=== PATIENT | female | born 1980 | race Caucasian/White ===

== ENCOUNTER 2023-01-26 10:41 | Emergency (ER) | payer OTHER, SELFPAY ==
[2023-01-26] VITALS (16 sets, daily range): BP systolic 133–150; BP diastolic 80–96; PULSE 68–86; RESP 18; TEMP 36.3; O2SAT 93–98
--- NOTE | 2023-01-26 10:59 | ED_ITS ---
HPI - Chest Pain General Time Seen by Provider: 11:08 Date Seen: 01/26/23 Chief Complaint: Chest Pain Stated Complaint: chest pain Time Seen by Provider: 01/26/23 10:59 Source: patient, family and RN notes reviewed Mode of arrival: ambulatory Limitations: no limitations History of Present Illness HPI narrative: Patient is a 42-year-old female coming into the ER of her own accord with complaint of chest discomfort/tightness. For about a week or so she has been having episodic tightness, occasional sense of racing heartbeat. These are not necessarily coming together. She does admit work has been stressful, tried to relax as weekend. At times the taking a deep breath she would feel the increased chest tightness. Had cough and a cold at the beginning of December and has had a little residual coughing at times. No fevers. No prior history for herself of heart or lung issues, no underlying asthma. She is a nonsmoker. She is not on any oral contraceptives and there is no chance for . She notes she did not feel increased sense of chest tightness with going up and down stairs or moving around. She has a history of burning type chest sensation a few years ago that was thought to be heartburn and [id number] Pepcid did relieve this. She does not take it all the time but does not feel it is helping now. Family history: Per patient her dad this past year of an MA at age 65. Her mom has hypertension. There is a grandfather on the maternal side that had heart disease issues. MD complaint: chest heaviness Risk Factors Coronary artery disease risk factors: none Related Data On Oral Contraceptives: No Home Medications Medication Instructions Recorded Confirmed ascorbate calcium (vitamin C) PO 04/02/22 04/22/22 cholecalciferol (vitamin D3) PO 04/02/22 04/22/22 Previous Rx's Medication Instructions Recorded benzonatate 100 mg capsule 100 mg PO BID-TID PRN cough #14 04/08/22 caps albuterol sulfate 90 mcg/actuation 2 puff inhalation Q6H PRN 04/22/22 aerosol inhaler shortness of breath or wheezing #6.7 grams azithromycin 250 mg tablet See Rx Instructions PO .COMPLEX #6 04/22/22 tabs codeine 10 mg-guaifenesin 100 mg/5 5 ml PO Q4-6H PRN cough #120 mL 04/22/22 mL oral liquid prednisone 20 mg tablet 20 mg PO BID #10 tabs 04/22/22 Allergies Allergy/AdvReac Type Severity Reaction Status Date / Time No Known Drug Allergies Allergy Verified 04/22/22 15:51 Review of Systems Status of ROS Reports: 6 or more systems reviewed and unremarkable except as noted in History and below PFSH PFS Social History Smoking Status: Never smoker How often do you have a drink containing alcohol: monthly or less How often do you have six or more drinks on one occasion: Never AUDIT-C Alcohol total score: 1 Non-prescribed substance use: denies use Exam Const Vital Signs, click to edit/add: Vital Signs - 24 hr 01/26/23 10:43 01/26/23 11:11 01/26/23 11:19 Temperature 97.3 F L Pulse Rate 73 Pulse Rate [Pulse Oximeter] 86 Respiratory Rate 18 Blood Pressure Blood Pressure [Right Upper Arm] 147/96 H Pulse Oximetry 98 95 93 Oxygen Delivery Method Room Air 01/26/23 11:20 01/26/23 11:24 01/26/23 11:30 Temperature Pulse Rate 68 77 Pulse Rate [Pulse Oximeter] Respiratory Rate Blood Pressure 150/92 H Blood Pressure [Right Upper Arm] Pulse Oximetry 95 94 Oxygen Delivery Method 01/26/23 12:00 01/26/23 12:02 01/26/23 12:03 Temperature Pulse Rate 79 75 75 Pulse Rate [Pulse Oximeter] Respiratory Rate Blood Pressure 135/81 Blood Pressure [Right Upper Arm] Pulse Oximetry 95 98 95 Oxygen Delivery Method 01/26/23 12:30 01/26/23 13:00 01/26/23 13:02 Temperature Pulse Rate 75 74 70 Pulse Rate [Pulse Oximeter] Respiratory Rate Blood Pressure 138/80 Blood Pressure [Right Upper Arm] Pulse Oximetry 97 97 97 Oxygen Delivery Method 01/26/23 13:03 01/26/23 13:30 01/26/23 14:00 Temperature Pulse Rate 69 71 76 Pulse Rate [Pulse Oximeter] Respiratory Rate Blood Pressure Blood Pressure [Right Upper Arm] Pulse Oximetry 97 96 96 Oxygen Delivery Method Documenting provider has reviewed patient's vital signs: yes Common normals: no apparent distress, average body habitus, oriented x3, no limitations, healthy appearing, alert and well nourished General appearance: cooperative, comfortable, well kempt and well developed Other: Mildly tearful initially, overall alert interactive very pleasant patient. HENRI Common normals: normocephalic, head/scalp atraumatic, hearing grossly normal bilaterally and external ears normal Head and scalp: normocephalic and atraumatic Face and sinus: normal facial exam External ear: external ears normal Eye Common normals: PERRL, EOMs intact bilaterally, conjunctivae normal and no scleral icterus Conjunctiva: conjunctiva(e) normal Pupil: PERRL Neck & C-Spine Common normals: full ROM, no lymphadenopathy, supple, no meningeal signs, no JVD and thyroid normal Thyroid: thyroid normal Chest Common normals: inspection of chest normal and palpation of chest normal Resp Common normals: normal respiratory effort, no retractions, no use of accessory muscles and clear to auscultation bilaterally Effort & inspection: able to speak in complete sentences Auscultation: clear to auscultation bilaterally Cardio Common normals: no JVD, regular rate, regular rhythm, S1 normal heart sound, S2 normal heart sound, no gallops, no clicks, no murmurs and no rub Rate: regular rate Rhythm: regular rhythm Heart sounds: S1 normal and S2 normal GI Common normals: Normal to inspection, nondistended, normoactive bowel sounds present, soft to palpation, non-tender, no hepatosplenomegaly and no masses Palpation: soft and no hepatosplenomegaly Extremity Common normals: no calf tenderness and no pedal edema Neuro Common normals: oriented x3 Sensorium/orientation: alert Meningeal signs: no meningeal signs Psych Appearance: well kempt Course Course Hospital Course: This is a 42-year-old female with episodic sense of heart racing and chest heaviness. The certainly is underlying anxiety with this patient but will have her on cardiac monitoring, pulse oximetry to rule evaluate for any possible arrhythmia in hypoxia while here. Will place an IV. She will get a portable chest x-ray and appropriate labs. She understands that we will be doing a D- dimer and if this is positive would recommend chest CT to rule out pulmonary emboli as the causative etiology. Will do a full complement of labs including thyroid. Will consider cardiothoracic diagnoses including but not limited to pulmonary infections, cardiovascular disease including ischemia, infarction, pulmonary emboli. Reevaluation(s) Time of Reevaluation #1: 12:28 Reevaluation #1: Reviewed with patient that Radiology still needs to over read her chest x-ray but I see no acute pathology on my preliminary review. We reviewed normal CBC, normal D-dimer, normal comprehensive metabolic panel. Still awaiting TSH in troponin I. She understands that she will need a follow-up troponin and EKG, likely in about 1-1/2 hours. If all of this does come back normal, likely discharge to home with further outpatient follow-up. Did discuss testing such as ZIO patch, echo, cardiac stress testing at all need to be considered but could be done outpatient if negative evaluation here today. Time of Reevaluation #2: 14:13 Reevaluation #2: Patient's troponins have come back normal. Her 2nd one is done about 2 hours after the 1st but her symptoms were earlier this morning. She has remained stable here, no evidence of any arrhythmia or hypoxia. Plan will be to discharge to home for further outpatient evaluation. Vital Signs Vital signs: Initial Vital Signs Temperature 97.3 F L 01/26/23 10:43 Temperature Source Temporal Artery Scan 01/26/23 10:43 Pulse Rate 86 01/26/23 10:43 Pulse Rhythm Regular 01/26/23 10:43 Respiratory Rate 18 01/26/23 10:43 Blood Pressure 147/96 H 01/26/23 10:43 Blood Pressure Mean 113 H 01/26/23 10:43 Blood Pressure Position Sitting 01/26/23 10:43 Pulse Oximetry 98 01/26/23 10:43 Oxygen Delivery Method Room Air 01/26/23 10:43 Vital Signs Temperature 97.3 F L 01/26/23 10:43 Pulse Rate 86 01/26/23 10:43 Respiratory Rate 18 01/26/23 10:43 Blood Pressure 147/96 H 01/26/23 10:43 Pulse Oximetry 98 01/26/23 10:43 Oxygen Delivery Method Room Air 01/26/23 10:43 Temperature 97.3 F L 01/26/23 10:43 Pulse Rate 76 01/26/23 14:00 Respiratory Rate 18 01/26/23 10:43 Blood Pressure 138/80 01/26/23 13:02 Pulse Oximetry 96 01/26/23 14:00 Oxygen Delivery Method Room Air 01/26/23 10:43 MDM - Chest Pain Differential Diagnosis Differential diagnosis: Likely pneumothorax, stable angina, unstable angina pectoris, atypical chest pain, st elevation myocardial infarction, costochondritis and chest pain Lab Data Attestation: I reviewed the patient's lab results. Labs: Lab Results 01/26/23 01/26/23 Range/Units 11:23 13:55 WBC 8.11 (4.50-11.00) K/uL RBC 5.15 (4.00-5.20) m/uL Hgb 15.1 (12.0-16.0) gm/dL Hct 44.8 (33.0-51.0) % MCV 87 (80-100) fL MCH 29 (26-34) pg MCHC 34 (32-36) gm/dL RDW Coeff of Alli 12.9 (11.5-15.5) % Plt Count 233 (140-440) K/uL Neut % (Auto) 67.8 (42.0-72.0) % Lymph % (Auto) 23.7 (20-44) % Wilkinson % (Auto) 7.3 (0.0-11.0) % Eos % (Auto) 0.6 (0.0-7.0) % Baso % (Auto) 0.4 (0.0-3.0) % Neut # (Auto) 5.50 (1.7-7.0) K/uL Lymph # (Auto) 1.92 (0.90-2.90) K/uL Wilkinson # (Auto) 0.60 (0.00-0.90) K/UL Eos # (Auto) 0.05 (0.00-0.50) K/uL Baso # (Auto) 0.03 (0.00-0.30) K/uL Abs Immat Gran (auto) 0.02 (0.00-0.30) K/uL Imm/Tot Granulo (auto) 0.2 % D-Dimer Quant (PE/DVT) < 0.27 (0.00-0.50) ug/ml Sodium 139 (135-149) mmol/L Potassium 3.8 (3.6-5.1) mmol/L Chloride 107 (96-114) mmol/L Carbon Dioxide 24 (20-32) mmol/L BUN 14 (5-24) mg/dL Creatinine 0.8 (0.5-1.5) mg/dL Estimated GFR 94 ml/min Glucose 105 (60-115) mg/dL Calcium 9.0 (8.4-10.6) mg/dL Total Bilirubin 0.3 (0.1-1.5) mg/dL AST 24 (12-35) U/L ALT 25 (4-35) U/L Alkaline Phosphatase 67 (40-150) U/L Troponin I < 0.01 L (0.01-0.04) ng/mL C-Reactive Protein 0.7 (0.5-1.0) mg/dL NT-Pro-B Natriuret Pep 65 pg/mL Total Protein 7.5 (6.0-8.3) g/dL Albumin 4.2 (3.3-5.0) g/dL TSH 2.600 (0.270-4.200) uIU/mL POC Troponin I 0.00 L (0.01-0.04) ng/ml Imaging Data Chest x-ray: Attestation: I have reviewed the pertinent imaging results. My impression: I see no acute pathology on my preliminary review. Radiologist's impression: Patient: FRANKO DAMON Facility:?[facility] Patient ID:?[id number] Site Patient ID:?[id number]. Site :?[id number] Study:?XRay Chest 1 VIEW PORTABLE-01/26/2023 11:31:59 AM Ordering Physician:?Chas Perdomo Final Report: Indication: Chest tightness, racing heart Comparison: None available. Technique: Single AP view chest Findings: There is no focal consolidation, effusion, or pneumothorax. The cardiomediastinal silhouette is within normal limits. The bony thorax is grossly intact. Impression: No acute cardiopulmonary abnormality. Dictated by Lan Friedman MD @ 01/26/2023 12:51:54 PM (Electronic Signature) ECG Data Attestation: I personally reviewed and interpreted this ECG as follows: (Normal sinus rhythm with sinus arrhythmia, 90 beats per minute. No ischemia. QT corrected 447 milliseconds.) ECG interpretation date: 01/26/23 ECG interpretation time: 11:00 Prior ECG tracings: not available for review Interpretation: Normal sinus rhythm, 76 beats per minute. No ischemic change noted. QT corrected 454 milliseconds. This is a followup EKG timed 1:36 p.m. Critical Care Time Critical Care Time Critical Care Time: No Discharge Plan Discharge Clinical Impression: Palpitations, Chest discomfort Patient Disposition: Home, Self-Care Condition: Stable Instructions: Chest Pain (ED), Heart Palpitations (ED), Noncardiac Chest Pain (ED) Additional Instructions: Need to schedule a follow-up with your primary care provider with in the next week if at all possible. Recommend consideration of outpatient monitoring with ZIO patch if possible, Holter monitor if that is what is available. Talked primary care provider about consideration of echo and cardiac stress testing. Can also review anxiety at follow-up. In the meantime activity as tolerated, do recommend going for walks as this may help reduce stress. If you notice walking or exercises increasing your physical symptoms, need to stop and seek re- evaluation. If for any reason you are having increasing symptoms, have new concerns, please seek re-evaluation in the ER if need be. Prescriptions: No Action ascorbate calcium (vitamin C) PO cholecalciferol (vitamin D3) PO benzonatate 100 mg capsule 100 mg PO BID-TID PRN (Reason: cough) Qty: 14 0RF codeine-guaifenesin 10-100 mg/5 mL liquid 5 ml PO Q4-6H PRN (Reason: cough) Qty: 120 0RF azithromycin 250 mg tablet See Rx Instructions PO .COMPLEX Qty: 6 0RF Rx Instructions: For 250 mg dose pack: take 500 mg today (day 1), then 250 mg for 4 days (days 2-5) PO prednisone 20 mg tablet 20 mg PO BID Qty: 10 0RF albuterol sulfate 90 mcg/actuation HFA aerosol inhaler 2 puff inhalation Q6H PRN (Reason: shortness of breath or wheezing) Qty: 6.7 1RF Follow Up/Referrals: Leonela Ospina PA-C [Primary Care Provider] - Stand Alone Forms: [employer] Info Instructions
--- NOTE | 2023-01-26 11:11 | CRLHL7_ITS ---
For Patients: As a result of the Century Cures Act, medical imaging exams and procedure reports are released immediately into your electronic medical record. You may view this report before your referring provider. If you have questions, please contact your health care provider. Indication: Chest tightness, racing heart Comparison: None available. Technique: Single AP view chest Findings: There is no focal consolidation, effusion, or pneumothorax. The cardiomediastinal silhouette is within normal limits. The bony thorax is grossly intact. Impression: No acute cardiopulmonary abnormality. Dictated by Lan Friedman MD @ 01/26/2023 12:51:54 PM (Electronically Signed)
[2023-01-26 11:31] LABS: Basophils Absolute Auto 0.03 K/uL (0.00-0.30); Basophils Percent Auto 0.4 % (0.0-3.0); Eosinophils Absolute Auto 0.05 K/uL (0.00-0.50); Eosinophils Percent Auto 0.6 % (0.0-7.0); Hematocrit 44.8 % (33.0-51.0); Hemoglobin* 15.1 gm/dL (12.0-16.0); Immature Granulocytes Abs Auto 0.02 K/uL (0.00-0.30); Immature Granulocytes Pct Auto 0.2 %; Lymphocytes Absolute Auto 1.92 K/uL (0.90-2.90); Lymphocytes Percent Auto 23.7 % (20-44); Mean Corpuscular HGB Conc 34 gm/dL (32-36); Mean Corpuscular Hemoglobin 29 pg (26-34); Mean Corpuscular Volume 87 fL (80-100); Monocytes Percent Auto 7.3 % (0.0-11.0); Neutrophils Percent Auto 67.8 % (42.0-72.0); Platelet Count* 233 K/uL (140-440); RDW Coefficient of Variation % 12.9 % (11.5-15.5); Red Blood Count 5.15 m/uL (4.00-5.20); White Blood Count* 8.11 K/uL (4.50-11.00)
[2023-01-26 11:39] LABS: Slide Review Reflex No
[2023-01-26 11:48] LABS: Albumin* 4.2 g/dL (3.3-5.0); Chloride* 107 mmol/L (96-114)
[2023-01-26 11:49] LABS: Potassium* 3.8 mmol/L (3.6-5.1); Sodium* 139 mmol/L (135-149)
[2023-01-26 11:51] LABS: Bilirubin Total* 0.3 mg/dL (0.1-1.5); Creatinine* 0.8 mg/dL (0.5-1.5); Estimated Glomerular Filt Rate 94 ml/min
[2023-01-26 11:52] LABS: Alanine Aminotransferase* 25 U/L (4-35); Alkaline Phosphatase* 67 U/L (40-150); Aspartate Amino Transferase* 24 U/L (12-35); Blood Urea Nitrogen* 14 mg/dL (5-24); Carbon Dioxide* 24 mmol/L (20-32); Glucose* 105 mg/dL (60-115); Total Protein* 7.5 g/dL (6.0-8.3)
[2023-01-26 11:55] LABS: C Reactive Protein* 0.7 mg/dL (0.5-1.0)
[2023-01-26 12:09] LABS: D Dimer Quantitative* < 0.27 ug/ml (0.00-0.50)
[2023-01-26 12:11] LABS: NT Pro B Type NatriureticPept* 65 pg/mL
[2023-01-26 12:42] LABS: Troponin I* < 0.01 ng/mL (0.01-0.04)
== END 2023-01-26 14:27 | disposition home or self-care (01) ==
PROVIDERS: Emergency Provider Family Medicine; PCP Physician Assistant Medical
DX: R07.89 Other chest pain (principal); R00.2 Palpitations
CPT/HCPCS: 36415; 71045; 80053; 83880; 84443; 84484; 85025; 85379; 86140; 93005; 94761; 99284

== ENCOUNTER 2023-02-10 13:44 | Outpatient (CLI) | payer OTHER, SELFPAY ==
--- NOTE | 2023-02-10 14:48 | W.PM.STED ---
Stress Test Note Date Date of test: 02/10/23 Providers Primary care provider: Leonela Ospina Stress test physician: Rafael Mcconnell Stress Test Note Stress test ordered: Stress Echo Indication for test: Chest pain Results discussion: Patient is a very nice lady who presents for the above test, after discussion the risks benefits side effects she would like to proceed pretest EKG shows normal sinus rhythm rate was 86, blood pressure 132/85, with no acute ST wave changes, cardiac stress test medical history form is reviewed. Following standard Vincent protocol she is exercised for a total time of 9 minutes, test is terminated because of fatigue, and completion of protocol. She did hit her target heart rate, and was able to be imaged without the use of definity. Subjectively she had some very mild shortness of breath, and some fatigue, at peak. Her maximum heart rate was 172, which is 114% of target heart rate. Review of the tracing shows occasional PVCs there is no other dysrhythmia noted, no acute ST wave changes suggestive of ischemia. Impression: Negative electrographic portion of stress echo, conditioning was felt to be good Follow up suggested: Cardiology will review the echo portions, preliminary read by the performing arts technicians was negative wall motion abnormality. Clinical correlation will be needed with this. She recovered normally in the recovery period, will be discharged when she reaches normal criteria. There were no complications
[2023-02-10 14:53] VITALS: BP 120/70; PULSE 106
== END 2023-02-10 13:45 | disposition home or self-care (01) ==
LOC: STRESS 13:45
PROVIDERS: PCP Physician Assistant Medical; Visit Provider Physician Assistant Medical
DX: R07.9 Chest pain, unspecified (principal)
CPT/HCPCS: 93016; 93325; 93351

== ENCOUNTER 2023-06-24 13:47 | Outpatient (CLI) | payer OTHER, SELFPAY | END 2023-06-24 13:48 | disposition home or self-care (01) | PROVIDERS: PCP Physician Assistant Medical; Visit Provider Physician Assistant Medical | DX: Z00.00 Encounter for general adult medical examination without abnormal findings (principal); E66.9 Obesity, unspecified; Z13.6 Encounter for screening for cardiovascular disorders; Z13.1 Encounter for screening for diabetes mellitus | CPT/HCPCS: 80061; 82947 ==

== ENCOUNTER 2023-07-28 10:10 | Outpatient (CLI) | payer OTHER, SELFPAY ==
--- OUTSIDE RECORDS SUMMARY | 2023-07-28 10:13 | XMS_ITS | Clinical Summary ---
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 Pap 12/20/09 with LSIL, cannot r/o higher grade lesion; colpo done 01/31/10= 6:00 biopsy showed CIN1 and ECC negative Pap 07/30/10- ASCUS, +HPV; no colpo done Cervical shortening 12/20/2009 Overview: Due to LEEP 03/30 and 08/29: will need sonos in to check cervical length. Health Maintenance 03/26/2009 Overview: Last PE, 01/19/09 Pap, 01/26/09, HSIL; LEEP done 03/30 with path showing focal area CIN2 and margins negative; ECC negative. Pap 07/01-HSIL; 2nd LEEP done 09/11/09 and path all negative. Paps normal since then. Pap 06/02 normal. Cholesterol 12/29: total-161/HDL-58/LDL-86/TG-83 Tdap given 03/02. Encounters Date Type Department Care Team Description 06/25/2023 Lab Requisition [facility] [phone] Leonela Ospina PA-C from Last 3 Months Immunizations Name Administration Dates Next Due Hepatitis B (Adult) 09/11/1995,03/03/1995,1994 Td (Age >=7 Years) 06/22/2001 Tdap 02/25/2011 Family History Medical History Relation Name Comments Cancer Maternal Aunt cervical Heart Disease Maternal Grandfather ID in his 60's Diabetes Maternal Grandmother type II Stroke Maternal Grandmother CVA in her 70's Diabetes Maternal Uncle Thyroid Disease Paternal Aunt Thyroid Disease Paternal Grandmother Relation Name Status Comments Maternal Aunt Maternal Grandfather Maternal Grandmother Maternal Uncle Paternal Aunt Paternal Grandmother Social History Tobacco Use Types Packs/Day Years Used Date Smoking Tobacco: Never Smokeless Tobacco: Never Alcohol Use Standard Drinks/Week Comments Yes 0 (1 standard drink = 0.6 oz pure alcohol) two-four times/month on weekend Sex and Gender Information Value Date Recorded Sex Assigned at Not on file Gender Identity Not on file Sexual Orientation Not on file Obstetrics History Para Term AB IAB SAB Ectopic Multiple Livin g Live Births 0 0 0 0 0 0 0 0 0 0 Last Filed Vital Signs Vital Sign Reading Time Taken Comments Blood Pressure 120/78 05/07/2015 1:55 PM TOBACCO CHECKOUT CLERK Pulse 80 01/19/2015 12:20 PM CDT Temperature 37.1 ??C (98.7 ??F) 01/19/2015 12:20 PM C DT Respiratory Rate 18 01/12/2012 3:56 PM CDT Oxygen Saturation 98% 03/25/2011 3:57 PM CDT Inhaled Oxygen Concentration - - Weight 106.1 kg (234 lb) 05/07/2015 1:55 PM TOBACCO CHECKOUT CLERK Height 177.8 cm (5' 10) 01/09/2015 1:50 PM CDT Body Mass Index 33.58 01/09/2015 1:50 PM CDT Plan of Treatment Health Maintenance Due Date Last Done Comments Depression screening for age 12+ 1991 HIV for age 15-65 09/05/1994 BMI (ht and wt on same day) for age 18+ 09/05/1997 Hepatitis C screening for age 18-79 09/05/1997 Tetanus booster 02/25/2021 02/25/2011, 06/22/2001 COVID-19 vaccine series (2022-24 season) 2023 06/28/2021, 11/30/2020, 11/09/2020 Influenza for age 9-49 02/20/2023 Pap test for age 21-65 06/24/2024 , 06/24/2023, 11/21/2020, Additional history exists Tdap Completed 02/25/2011 Pneumococcal series for age 6-64 Aged Out No longer eligible based on patient's age to complete this topic Procedures Procedure Name Priority Date/Time Associated Diagnosis Comments LAB TRACKING EVENT Routine 06/24/2023 1: 45 PM TOBACCO CHECKOUT CLERK [employer]ER THIN PREP PAP SCREEN IMAGED Routine 06/24/2023 1:45 PM TOBACCO CHECKOUT CLERK HPV THIN PREP Routine 06/24/2023 1:45 PM TOBACCO CHECKOUT CLERK from Last 3 Months Results * LAB TRACKING EVENT (06/24/2023 1:45 PM TOBACCO CHECKOUT CLERK) Other (Other) Client Collect / Unknown 06/24/2023 1:45 PM TOBACCO CHECKOUT CLERK 06/25/2023 3:25 PM TOBACCO CHECKOUT CLERK Leonela Ospina PA-C LAB BILL ONLY [facility] [address] [place] [address], * (ABNORMAL) [employer]SEM[employer]Y LABORER THIN PREP PAP SCREEN IMAGED (06/24/2023 1:45 PM TOBACCO CHECKOUT CLERK) Case Report Gynecologic Cytology Report ? Case: [id number] ? Authorizing Provider: ??Leonela Ospina PA-C ?Collected: ? 06/24/2023 1345 ? Ordering Location: ? [facility] ?Received: ?06/25/2023 1753 ? First Screen: ?Nicolasa, Wen L ? Pathologist: ? Leonela Reyes MD ? Specimen: ?[employer] LAB[employer]ER ThinPrep Vial Screening, Cervical ? 07/06/2023 2:24 PM TOBACCO CHECKOUT CLERK [facility] INTERPRETATION/ RESULT ATYPICAL SQUAMOUS CELLS OF UNDETERMINED SIGNIFICANCE (ASCUS)(A) (none) 07/06/2023 2:24 PM [facility] IMEN ADEQUACY Satisfactory for evaluation Endocervical component present 07/06/2023 2:24 PM TOBACCO CHECKOUT CLERK [facility] HPV REQUEST HPV and PAP 07/06/2023 2:24 PM TOBACCO CHECKOUT CLERK [facility] Date of LMP 06/18/2023 07/06/2023 2:24 PM TOBACCO CHECKOUT CLERK [facility] Last Pap Date 11/22/2020 07/06/2023 2:24 PM TOBACCO CHECKOUT CLERK [facility] Last Pap Result NIL 2:24 PM TOBACCO CHECKOUT CLERK [facility] Additional Information 07/06/2023 2:24 PM TOBACCO CHECKOUT CLERK [facility] Comment: Interpreted at [facility] - [address] [facility] [address], [place] [address] Automated Review Successful 07/06/2023 2:24 PM TOBACCO CHECKOUT CLERK [facility] Comment:Specimen processed s uccessfully by automated heavy equipment sales manager device, ThinPrep Imaging System, [employer] ANCILLARY TESTING [employer]Y LABORER HPV Ordered, Please see separate report 07/06/2023 2:24 PM TOBACCO CHECKOUT CLERK [facility] Note The pap test is a screening technique, not a diagnostic procedure. It is used primarily to screen for squamous cancers and precursor lesions. Published studies have shown that it is subject to both false negative and false positive results. The pap test should not be used as the sole means to diagnose or exclude pre-malignant and malignant lesions. 07/06/2023 2:24 PM TOBACCO CHECKOUT CLERK [facility] Other (Cervical) 06/24/2023 1:45 PM TOBACCO CHECKOUT CLERK 06/25/2023 5:53 PM TOBACCO CHECKOUT CLERK Leonela Ospina PA-C PATHOLOGY/CYTOLOGY [facility] [address] [place] [address], * HPV HIGH RISK (06/24/2023 1:45 PM TOBACCO CHECKOUT CLERK) TYPE 16 Negative Negative 06/29/2023 1:30 PM TOBACCO CHECKOUT CLERK [facility] TYPE 18 Negative Negative 06/29/2023 1:30 PM TOBACCO CHECKOUT CLERK [facility] OTHER HIGH RISK TYPES Negative Negative 06/29/2023 1:30 PM TOBACCO CHECKOUT CLERK [facility] Other (Cervical) 06/24/2023 1:45 PM TOBACCO CHECKOUT CLERK 06/25/2023 5:53 PM TOBACCO CHECKOUT CLERK Narrative [facility] - 06/29/2023 1:30 PM TOBACCO CHECKOUT CLERK HPV types 16, 18, 31, 33, 35, 39, 45, 51, 52, 56, 58, 59, 66 and 68 DNA were undetectable or below the pre-set threshold. Methodology: Lamberto Donald 4800 HPV Test Leonela Ospina PA-C MICROBIOLOGY [facility] [address] [place] [address], from Last 3 Months Care Teams Chainstitch Binder Relationship Specialty Start Date End Date None, Dr Bauman PCP - General Unknown Physician Specialty 12/18/14
--- NOTE | 2023-07-28 10:15 | CRLHL7_ITS ---
For Patients: As a result of the Century Cures Act, medical imaging exams and procedure reports are released immediately into your electronic medical record. You may view this report before your referring provider. If you have questions, please contact your health care provider. BILATERAL SCREENING MAMMOGRAM WITH COMPUTER-AIDED DETECTION AND TOMOSYNTHESIS TECHNIQUE: CC and MLO views were obtained. These mammographic images have been obtained using full-field digital technique. These mammographic images were interpreted with the benefit of computer-aided detection. Breast Tomosynthesis was used in this interpretation. COMPARISON FILM: 12/04/20. FINDINGS: There are scattered areas of fibroglandular density IMPRESSION: There is no radiographic evidence for malignancy. ASSESSMENT: BI-RADS Category 1: Negative RECOMMENDATION: Routine screening mammogram in 1 year. A lay language report of this examination will be provided to the patient. Ceasar Bryant M.D. Diagnostic Radiologist [email or web address] SHAN/Dictated by: Ceasar Bryant MD @ 07/28/2023 12:36:00 PM (Electronically Signed)
== END 2023-07-28 10:11 | disposition home or self-care (01) ==
LOC: MAMMO 10:10
PROVIDERS: PCP Physician Assistant Medical; Visit Provider Physician Assistant Medical
DX: Z12.31 Encounter for screening mammogram for malignant neoplasm of breast (principal)
CPT/HCPCS: 77063; 77067

== ENCOUNTER 2024-08-08 08:48 | Outpatient (CLI) | payer OTHER, SELFPAY | END 2024-08-08 08:49 | disposition home or self-care (01) | LOC: NFLDREF 08-10 06:57 | PROVIDERS: PCP Physician Assistant Medical; Referring Provider Physician Assistant Medical; Visit Provider Physician Assistant Medical | DX: E78.5 Hyperlipidemia, unspecified (principal); Z13.29 Encounter for screening for other suspected endocrine disorder | CPT/HCPCS: 80048; 80061; 84443 ==

== ENCOUNTER 2024-08-30 15:44 | Outpatient (CLI) | payer OTHER, SELFPAY ==
--- NOTE | 2024-08-30 16:00 | CRLHL7_ITS ---
For Patients: As a result of the Century Cures Act, medical imaging exams and procedure reports are released immediately into your electronic medical record. You may view this report before your referring provider. If you have questions, please contact your health care provider. BILATERAL SCREENING MAMMOGRAM WITH COMPUTER-AIDED DETECTION AND TOMOSYNTHESIS TECHNIQUE: CC and MLO views were obtained. These mammographic images have been obtained using full-field digital technique. These mammographic images were interpreted with the benefit of computer-aided detection. Breast Tomosynthesis was used in this interpretation. COMPARISON FILM: 07/28/23, 12/04/20. FINDINGS: There are scattered areas of fibroglandular density. IMPRESSION: There is no radiographic evidence for malignancy. ASSESSMENT: BI-RADS Category 1: Negative RECOMMENDATION: Routine screening mammogram in 1 year. A lay language report of this examination will be provided to the patient. Ceasar Bryant M.D. Diagnostic Radiologist [email or web address] SP/Dictated by: Ceasar Bryant MD @ 08/31/2024 1:13:00 PM (Electronically Signed)
== END 2024-08-30 15:45 | disposition home or self-care (01) ==
LOC: MAMMO 15:44
PROVIDERS: PCP Physician Assistant Medical; Visit Provider Physician Assistant Medical
DX: Z12.31 Encounter for screening mammogram for malignant neoplasm of breast (principal)
CPT/HCPCS: 77063; 77067